=== PATIENT | female | born 1945 | race Caucasian/White ===

== ENCOUNTER 2018-04-04 18:56 | Inpatient (IN) ==
[2018-04-04] MEDS ORDERED: Acetaminophen 325 MG Tablet PO ONE (20:27)
[2018-04-04] MEDS ORDERED: Piperacil/Tazo 3.375 GM Premix 50 ML IV.SIG ONE (20:41)
--- NOTE | 2018-04-04 20:58 | ED ---
HPI General Chief Complaint: Fever Stated Complaint: fever/[place]/chills x2days Time Seen by Provider: 04/04/18 20:22 Source: patient Mode of arrival: ambulatory Limitations: no limitations History of Present Illness HPI Narrative: 72 yo F c/o dysuria and urinary frequency. fever earlier this morning reported with some improvement after Tylenol. friends report some confusion at home. pt complains of pain in the left abdomen with radiation to the left flank. no hematuia. pt reports symptoms are similar to prior urinary tract infection. Related Data Home Medications Medication Instructions Recorded Confirmed glipizide 5 mg PO DAILY 04/04/18 04/04/18 meloxicam 15 mg PO DAILY 04/04/18 04/04/18 metformin 500 mg PO BID 04/04/18 04/04/18 multivitamin [Multiple Vitamins] 1 tab PO DAILY 04/04/18 04/04/18 sitagliptin [Januvia] 100 mg PO DAILY 04/04/18 04/04/18 Allergies Allergy/AdvReac Type Severity Reaction Status Date / Time Antihistamines - Alkylamine Allergy Weakness Verified 04/04/18 19:19 Antihistamines - Ethanolamine Allergy Weakness Verified 04/04/18 19:19 Antihistamines - Allergy Weakness Verified 04/04/18 19:19 Ethylenediamine Antihistamines - Piperazine Allergy Weakness Verified 04/04/18 19:19 Antihistamines - Piperidine Allergy Weakness Verified 04/04/18 19:19 Review of Systems ROS: all other systems reviewed are negative [facility] Family History Family History Mother Diabetes Sister Breast cancer Social History Social History Substance History: No History of Abuse Second Hand Smoke Exposure: No Smoking Status: Never smoker How Often Do You Have a Drink Containing Alcohol: Never Recent Travel in [facility] within the Last 8 Weeks: Yes Recent Out of Country Travel within the Last 8 Weeks: No Exam Narrative Exam Narrative: GENERAL: 72 yo F, WNWD, mild distress, pleasant SKIN: Focused skin assessment warm/dry. HEAD: Atraumatic. Normocephalic. EYES: Pupils equal and round. No scleral icterus. No injection or drainage. ENT: No nasal bleeding or discharge. Mucous membranes pink and moist. NECK: Trachea midline. No JVD. CARDIOVASCULAR: Tachycardia. Rate 94. Normal rhythm. RESPIRATORY: No accessory muscle use. Clear to auscultation. Breath sounds equal bilaterally. GASTROINTESTINAL: Soft. Minimal generalized TTP. MUSCULOSKELETAL: No obvious deformities. No clubbing. No cyanosis. No edema. NEUROLOGICAL: Awake and alert. No obvious cranial nerve deficits. Motor grossly within normal limits. Normal speech. PSYCHIATRIC: Appropriate mood and affect; insight and judgment normal. Course Initial Documented Vital Signs Temperature 102.5 F H 04/04/18 19:20 Pulse Rate 94 H 04/04/18 19:20 Respiratory Rate 16 04/04/18 19:20 Blood Pressure 130/58 L 04/04/18 19:20 Pulse Oximetry 93 L 04/04/18 19:20 Last Documented Vital Signs Temperature 101.9 F H 04/05/18 16:00 Pulse Rate 82 04/05/18 16:00 Respiratory Rate 17 04/05/18 16:00 Blood Pressure 141/60 H 04/05/18 16:00 Pulse Oximetry 97 04/05/18 16:00 Medical Decision Making MDM Narrative Medical decision making narrative: Patient has urinary tract infection. There is a distal left ureter stone with hydronephrosis. Admission for IV antibiotics and IV fluids. Numerically the patient meets sepsis criteria. This workup has been started in the ED. d/w Dr Oglesby for [facility]. Medical Screen Exam Complete: Yes Emergency Medical Condition: Yes Differential Diagnosis Differential Diagnosis: uti, sepsis, delirium, faith Lab Data Lab results reviewed: Yes I reviewed the patient's lab results. Result diagrams: 04/05/18 06:00 04/05/18 06:00 Lab Results 04/04/18 04/04/18 04/04/18 Range/Units 20:45 20:45 20:45 CBC w Diff Slide review pending WBC 14.7 H (4.0-11.0) th/mm3 RBC 4.58 (4.00-5.30) mil/mm3 Hgb 13.4 (11.6-15.3) gm/dL Hct 40.4 (35.0-46.0) % MCV 88.2 (80.0-100.0) fL MCH 29.3 (27.0-34.0) pg MCHC 33.2 (32.0-36.0) % RDW 15.1 (11.6-17.2) % Plt Count 151 (150-450) th/mm3 MPV 8.1 (7.0-11.0) fL Neut % (Auto) 83.8 H (16.0-70.0) % Lymph % (Auto) 7.1 L (9.0-44.0) % [place] % (Auto) 8.4 H (0.0-8.0) % Eos % (Auto) 0.0 (0.0-4.0) % Baso % (Auto) 0.7 (0.0-2.0) % Neut # (Auto) 12.4 H (1.8-7.7) th/mm3 Lymph # (Auto) 1.0 (1.0-4.8) th/mm3 [place] # (Auto) 1.2 H (0.0-0.9) th/mm3 Eos # (Auto) 0.0 (0.0-0.4) th/mm3 Baso # (Auto) 0.1 (0.0-0.2) th/mm3 WBC Differential . Diff Scan Auto diff confirmed Differential Comment . Platelet Estimate Normal (Normal) Platelet Morphology Normal (Normal) RBC Morphology Normal (Normal) Sodium 136 (136-145) meq/L Potassium 3.7 (3.5-5.1) meq/L Chloride 104 (98-107) meq/L Carbon Dioxide 24.6 (21.0-32.0) meq/L Anion Gap 7 (5-15) meq/L BUN 32 H (7-18) mg/dL Creatinine 1.10 H (0.50-1.00) mg/dL Estimated GFR 49 L (>89) mL/min POC Glucose (68-110) mg/dl Random Glucose 164 H (74-106) mg/dL Lactic Acid (0.4-2.0) mmol/L Calcium 8.2 L (8.5-10.1) mg/dL Prot Corrected Calcium (8.5-10.1) mg/dL Magnesium 1.5 (1.5-2.5) mg/dL Total Bilirubin 0.9 (0.2-1.0) mg/dL AST 71 H (15-37) U/L ALT 70 H (10-53) U/L Alkaline Phosphatase 80 (45-117) U/L Total Protein 6.6 (6.4-8.2) g/dL Albumin 3.3 L (3.4-5.0) g/dL Urine Color Yellow (Yellw/Straw) Urine Clarity Slightly cloudy (Clear) Urine pH 6.5 (5.0-8.5) Ur Specific [place] 1.015 (1.002-1.035) Urine Protein 100 H (Neg-Trace) mg/dL Urine Glucose (UA) Negative (Negative) mg/dL Urine Ketones Negative (Negative) mg/dL Urine Occult Blood Moderate H (Negative) Urine Nitrate Positive H (Negative) Urine Bilirubin Negative (Negative) Urine Urobilinogen 1.0 (Less than 2) mg/dL Ur Leukocyte Esterase Moderate H (Negative) Urine RBC 4-15 H (0-3) /hpf Urine WBC 51-189 H (0-5) /hpf Ur Squamous Epith Cells 6-10 H (0-5) /hpf Urine Bacteria Many H (None) /hpf Micro UA Comment Culture indicated Ur Microscopic Review Microscopic reviewed Urine Culture Comments Culture indicated 04/04/18 04/04/18 04/05/18 Range/Units 20:50 20:50 06:00 CBC w Diff Slide review pending WBC 11.7 H (4.0-11.0) th/mm3 RBC 4.13 (4.00-5.30) mil/mm3 Hgb 12.1 (11.6-15.3) gm/dL Hct 35.8 (35.0-46.0) % MCV 86.7 (80.0-100.0) fL MCH 29.2 (27.0-34.0) pg MCHC 33.7 (32.0-36.0) % RDW 15.5 (11.6-17.2) % Plt Count 122 L (150-450) th/mm3 MPV 9.3 (7.0-11.0) fL Neut % (Auto) 81.9 H (16.0-70.0) % Lymph % (Auto) 7.6 L (9.0-44.0) % [place] % (Auto) 10.3 H (0.0-8.0) % Eos % (Auto) 0.1 (0.0-4.0) % Baso % (Auto) 0.1 (0.0-2.0) % Neut # (Auto) 9.6 H (1.8-7.7) th/mm3 Lymph # (Auto) 0.9 L (1.0-4.8) th/mm3 [place] # (Auto) 1.2 H (0.0-0.9) th/mm3 Eos # (Auto) 0.0 (0.0-0.4) th/mm3 Baso # (Auto) 0.0 (0.0-0.2) th/mm3 WBC Differential . Diff Scan Auto diff confirmed Differential Comment . Platelet Estimate Low L (Normal) Platelet Morphology Normal (Normal) RBC Morphology Normal (Normal) Sodium (136-145) meq/L Potassium (3.5-5.1) meq/L Chloride (98-107) meq/L Carbon Dioxide (21.0-32.0) meq/L Anion Gap (5-15) meq/L BUN (7-18) mg/dL Creatinine (0.50-1.00) mg/dL Estimated GFR (>89) mL/min POC Glucose 159 H (68-110) mg/dl Random Glucose (74-106) mg/dL Lactic Acid 1.3 (0.4-2.0) mmol/L Calcium (8.5-10.1) mg/dL Prot Corrected Calcium (8.5-10.1) mg/dL Magnesium (1.5-2.5) mg/dL Total Bilirubin (0.2-1.0) mg/dL AST (15-37) U/L ALT (10-53) U/L Alkaline Phosphatase (45-117) U/L Total Protein (6.4-8.2) g/dL Albumin (3.4-5.0) g/dL Urine Color (Yellw/Straw) Urine Clarity (Clear) Urine pH (5.0-8.5) Ur Specific [place] (1.002-1.035) Urine Protein (Neg-Trace) mg/dL Urine Glucose (UA) (Negative) mg/dL Urine Ketones (Negative) mg/dL Urine Occult Blood (Negative) Urine Nitrate (Negative) Urine Bilirubin (Negative) Urine Urobilinogen (Less than 2) mg/dL Ur Leukocyte Esterase (Negative) Urine RBC (0-3) /hpf Urine WBC (0-5) /hpf Ur Squamous Epith Cells (0-5) /hpf Urine Bacteria (None) /hpf Micro UA Comment Ur Microscopic Review Urine Culture Comments 04/05/18 Range/Units 06:00 CBC w Diff WBC (4.0-11.0) th/mm3 RBC (4.00-5.30) mil/mm3 Hgb (11.6-15.3) gm/dL Hct (35.0-46.0) % MCV (80.0-100.0) fL MCH (27.0-34.0) pg MCHC (32.0-36.0) % RDW (11.6-17.2) % Plt Count (150-450) th/mm3 MPV (7.0-11.0) fL Neut % (Auto) (16.0-70.0) % Lymph % (Auto) (9.0-44.0) % [place] % (Auto) (0.0-8.0) % Eos % (Auto) (0.0-4.0) % Baso % (Auto) (0.0-2.0) % Neut # (Auto) (1.8-7.7) th/mm3 Lymph # (Auto) (1.0-4.8) th/mm3 [place] # (Auto) (0.0-0.9) th/mm3 Eos # (Auto) (0.0-0.4) th/mm3 Baso # (Auto) (0.0-0.2) th/mm3 WBC Differential Diff Scan Differential Comment Platelet Estimate (Normal) Platelet Morphology (Normal) RBC Morphology (Normal) Sodium 139 (136-145) meq/L Potassium 3.4 L (3.5-5.1) meq/L Chloride 108 H (98-107) meq/L Carbon Dioxide 23.1 (21.0-32.0) meq/L Anion Gap 8 (5-15) meq/L BUN 24 H (7-18) mg/dL Creatinine 0.94 (0.50-1.00) mg/dL Estimated GFR 59 L (>89) mL/min POC Glucose (68-110) mg/dl Random Glucose 169 H (74-106) mg/dL Lactic Acid (0.4-2.0) mmol/L Calcium 7.4 L* D (8.5-10.1) mg/dL Prot Corrected Calcium 8.2 L (8.5-10.1) mg/dL Magnesium (1.5-2.5) mg/dL Total Bilirubin 1.1 H (0.2-1.0) mg/dL AST 47 H (15-37) U/L ALT 60 H (10-53) U/L Alkaline Phosphatase 64 (45-117) U/L Total Protein 5.7 L D (6.4-8.2) g/dL Albumin 2.6 L D (3.4-5.0) g/dL Urine Color (Yellw/Straw) Urine Clarity (Clear) Urine pH (5.0-8.5) Ur Specific [place] (1.002-1.035) Urine Protein (Neg-Trace) mg/dL Urine Glucose (UA) (Negative) mg/dL Urine Ketones (Negative) mg/dL Urine Occult Blood (Negative) Urine Nitrate (Negative) Urine Bilirubin (Negative) Urine Urobilinogen (Less than 2) mg/dL Ur Leukocyte Esterase (Negative) Urine RBC (0-3) /hpf Urine WBC (0-5) /hpf Ur Squamous Epith Cells (0-5) /hpf Urine Bacteria (None) /hpf Micro UA Comment Ur Microscopic Review Urine Culture Comments Imaging Data Radiologist's impression: Abdomen/Pelvis CT 04/04/18 20:40 CONCLUSION: 1. There are 2 calculi in the distal left ureter measuring up to 4 mm and 5 mm in maximal diameter with left-sided obstructive uropathy and mild left hydronephrosis. Otherwise no acute findings within the abdomen and pelvis. Abdomen X-Ray 04/05/18 00:00 CONCLUSION: 1. No renal or ureteral calculi identified. 2. Mildly nonspecific bowel gas pattern which could represent a mild ileus. Discharge Plan Discharge Disposition Patient Disposition: 30 Still Patient Physicians Team ED Provider: Kishor Whitehead Primary Care Provider: Primary Care Anuj,Didi Attending Provider: Angeline Madsen Other Providers: Logan Yusuf Status ED Status: Left Department Discharge Information Discharge Date/Time: 04/05/18 00:30
[2018-04-04 21:01] LABS: Bilirubin,Urine Negative (Negative); Clarity,Urine Slightly Cloudy (Clear); Color,Urine Yellow (Yellw/Straw); Glucose,Urine (UA) Negative (Negative); Leukocyte Esterase,Urine Moderate (Negative); Nitrite,Urine Positive (Negative); PH,Urine 6.5 (5.0-8.5); Specific Gravity,Urine 1.015 (1.002-1.035)
[2018-04-04 21:04] LABS: Baso # (Auto) 0.1 th/mm3 (0.0-0.2); Baso % (Auto) 0.7 % (0.0-2.0); Hematocrit 40.4 % (35.0-46.0); Hemoglobin 13.4 gm/dL (11.6-15.3); Lymph % (Auto) 7.1 % (9.0-44.0); Mean Corpuscular HGB Conc 33.2 % (32.0-36.0); Mean Corpuscular Hemoglobin 29.3 pg (27.0-34.0); Mean Corpuscular Volume 88.2 fL (80.0-100.0); Mean Platelet Volume 8.1 fL (7.0-11.0); Mono # (Auto) 1.2 th/mm3 (0.0-0.9); Mono % (Auto) 8.4 % (0.0-8.0); Neut # (Auto) 12.4 th/mm3 (1.8-7.7); Neut % (Auto) 83.8 % (16.0-70.0); Platelet Count 151 th/mm3 (150-450); Red Blood Count 4.58 mil/mm3 (4.00-5.30); Red Cell Distribution Width 15.1 % (11.6-17.2); White Blood Count 14.7 th/mm3 (4.0-11.0)
[2018-04-04] MEDS: Sod Chloride 0.9% Inj 1,000 ML IV.SIG SCH ×2 (21:04→22:15)
[2018-04-04 21:13] LABS: Chloride 104 meq/L (98-107); Potassium 3.7 meq/L (3.5-5.1); Sodium 136 meq/L (136-145)
[2018-04-04 21:16] LABS: Bacteria,Urine Many /hpf; Calcium 8.2 mg/dL (8.5-10.1); WBC,Urine 51-189 /hpf (0-5)
[2018-04-04 21:17] LABS: Albumin 3.3 g/dL (3.4-5.0); Anion Gap 7 meq/L (5-15); Blood Urea Nitrogen 32 mg/dL (7-18); Carbon Dioxide 24.6 meq/L (21.0-32.0); Glucose,Random 164 mg/dL (74-106); Magnesium 1.5 mg/dL (1.5-2.5)
[2018-04-04 21:20] LABS: Alanine Aminotransferase 70 U/L (10-53); Aspartate Aminotransferase 71 U/L (15-37); Glomerular Filtration Rate 49 mL/min (>89)
[2018-04-04 21:21] LABS: Total Protein 6.6 g/dL (6.4-8.2)
[2018-04-04 21:23] LABS: Alkaline Phosphatase 80 U/L (45-117)
[2018-04-04 21:26] LABS: Platelet Estimate Normal (Normal); Platelet Morphology Normal (Normal); RBC Morphology Normal (Normal)
[2018-04-04] MEDS ORDERED: Dextrose 50% in Water 50 ML Vial IV.PUSH PRN (22:37)
[2018-04-04] MEDS ORDERED: Bisacodyl 10 MG Supp RECTAL PRN (22:37)
[2018-04-04] MEDS ORDERED: Piperacil/Tazo 3.375 GM Premix 50 ML IV.SIG SCH (22:45)
--- NOTE | 2018-04-04 22:57 | CT ---
EXAM DATE: 04/04/2018 10:16 PM EDT AGE/SEX: 72 years / Female INDICATIONS: Fever. Headache. Chills. CLINICAL DATA: This is the patient's initial encounter. Patient reports that signs and symptoms have been present for 1 day and indicates a pain score of 5/10. MEDICAL/SURGICAL HISTORY: . Arthritis. Diabetes. . Cataract. Left foot. Knee. ORAL CONTRAST: No oral contrast ingested. RADIATION DOSE: 22.03 CTDI (mGy) COMPARISON: No prior exams available for comparison. TECHNIQUE: Multiple contiguous axial images were obtained through the abdomen and pelvis following b olus infusion of 90 ml Omnipaque 350 (iohexol) nonionic water-soluble contrast as a single exam dos e. No oral contrast ingested. Using automated exposure control and adjustment of the mA and/or kV ac cording to patient size, radiation dose was kept as low as reasonably achievable to obtain optimal di agnostic quality images. DICOM format image data is available electronically for review and comparis on. FINDINGS: There are 2 calculi in the distal left ureter measuring up to 4 mm and 5 mm in maximal diameter. Left ureter is dilated above the distal calculi and there is mild left hydronephrosis and obstructive uro renetta. No right-sided ureteral calculi or hydronephrosis. Lung bases are clear. No acute findings in the liver, spleen, adrenals or pancreas. No pelvic masses or free fluid. No adenopathy. No acute bony abnormalities. CONCLUSION: 1. There are 2 calculi in the distal left ureter measuring up to 4 mm and 5 mm in maximal diameter w ith left-sided obstructive uropathy and mild left hydronephrosis. Otherwise no acute findings within the abdomen and pelvis. Electronically signed by: Brandon Pérez MD 04/04/2018 10:56 PM EDT
[2018-04-04] MEDS: Sod Chloride 0.9% Inj 1,000 ML IV.CONT SCH (23:57)
[2018-04-05] MEDS: Acetaminophen 325 MG Tablet PO PRN ×2 (03:52→16:10)
[2018-04-05] MEDS: Piperacil/Tazo 3.375 GM Premix 50 ML IV.SIG SCH ×4 (03:53→21:19)
[2018-04-05 07:09] LABS: Baso % (Auto) 0.1 % (0.0-2.0); Eos % (Auto) 0.1 % (0.0-4.0); Hematocrit 35.8 % (35.0-46.0); Hemoglobin 12.1 gm/dL (11.6-15.3); Lymph # (Auto) 0.9 th/mm3 (1.0-4.8); Lymph % (Auto) 7.6 % (9.0-44.0); Mean Corpuscular HGB Conc 33.7 % (32.0-36.0); Mean Corpuscular Hemoglobin 29.2 pg (27.0-34.0); Mean Corpuscular Volume 86.7 fL (80.0-100.0); Mean Platelet Volume 9.3 fL (7.0-11.0); Mono # (Auto) 1.2 th/mm3 (0.0-0.9); Mono % (Auto) 10.3 % (0.0-8.0); Neut # (Auto) 9.6 th/mm3 (1.8-7.7); Neut % (Auto) 81.9 % (16.0-70.0); Platelet Count 122 th/mm3 (150-450); Red Blood Count 4.13 mil/mm3 (4.00-5.30); Red Cell Distribution Width 15.5 % (11.6-17.2); White Blood Count 11.7 th/mm3 (4.0-11.0)
[2018-04-05 07:19] LABS: Potassium 3.4 meq/L (3.5-5.1)
[2018-04-05 07:40] LABS: Albumin 2.6 g/dL (3.4-5.0); Calcium 7.4 mg/dL (8.5-10.1); Carbon Dioxide 23.1 meq/L (21.0-32.0); Total Protein 5.7 g/dL (6.4-8.2)
[2018-04-05 07:45] LABS: Platelet Morphology Normal (Normal); RBC Morphology Normal (Normal)
--- NOTE | 2018-04-05 08:59 | P.HPIM ---
History of Present Illness Service: Hospitalist Primary Care Physician: No Primary Care Physician Chief Complaint: Dysuria, AMS History of Present Illness: 72 year old female with DM presenting with dysuria, urinary frequency , and flank pain for the past four days. She states she began having fever and chills yesterday morning anf has also had a headache during this time. She endorses left flank discomfort and states she has had a kidney stone once in the past that did not require any urologic intervention. She denies hematuria. She felt like her symptoms were typical of UTI's she has had in the past. She denies chest pain, shortness of breath, nausea, vomiting, diarrhea, or edema. She states she was confused prior to coming in for evaluation and her relative felt that she needed to come in for evaluation. She states that she feels like she is thinking much more clearly now. PMH: non-insulin dependent DM Surgical hx: hysterectomy, L knee surgery, cataracts Family hx: DM in both parents, DM and breast cancer in sister ( in her 40s) Social hx: lives part of the year in [place], denies EtOH/tobacco/drugs - Diagnosis (1) Sepsis (2) Obstructive uropathy (3) Ureteral calculi (4) UTI (urinary tract infection) (5) Metabolic encephalopathy Inpatient Certification: I certify that the inpatient services were ordered in accordance with Medicare regulations governing the order. This includes certification that hospital inpatient services are reasonable and necessary and in the case of services not specified as inpatient-only under 42 CFR 419.22(n), that they are appropriately provided as inpatient services in accordance to with the 2-midnight benchmark under 43 CFR 412.3(e) Estimated Total Length of Stay (Days): 2 Plans for Post Hospital Care: Home Review of Systems All other systems reviewed negative except as stated in HPI PMFSH - History History Provided By: Patient - Medical History Medical History: Medical History (Last Reviewed 04/05/18 @ 13:40 by Angeline Madsen MD) Arthritis Diabetes H/O: hysterectomy - Surgical History Surgical History: Surgical History (Last Reviewed 04/05/18 @ 13:40 by Angeline Madsen MD) Hx of cataract surgery Hx of foot surgery Hx of knee surgery - Family History Family History: Family History (Last Updated 04/05/18 @ 13:41 by Angeline Madsen MD) Mother Diabetes Sister Breast cancer - Social History I have reviewed the patient's Social History: Yes - Tobacco History Second Hand Smoke Exposure: No Tobacco Use In Past 30 Days: No Smoking Status: Never smoker - Alcohol History How Often Do You Have a Drink Containing Alcohol: Never - Substance Use History Substance History: No History of Abuse - Travel History Recent Travel in the [place] Within the Last 8 Weeks: Yes Recent Travel Out of the Country Within the Last 8 Weeks: No - Immunization History Tetanus Immunization: Unsure Hx Influenza Vaccine This Season: Yes Medications and Allergies Active Medications: Active Medications Acetaminophen (Tylenol) 650 mg PO Q4H PRN PRN Reason: fever, or [place] Last Admin: 04/05/18 03:52 Dose: 650 mg Al Hydroxide/Mg Hydroxide (Milk Of Magnesia Liq) 30 ml PO Q12H PRN PRN Reason: Mild Constipation Bisacodyl (Dulcolax Supp) 10 mg RECTAL DAILY PRN PRN Reason: SEVERE CONSITIPATION Dextrose (D50w Vial) 50 ml IV.PUSH UNSCH PRN PRN Reason: PER HYPOGLYCEMIA PROTOCOL Glucagon (Glucagon Inj) 1 mg OTHER PRN PRN PRN Reason: for Hypoglycemia Protocol Sodium Chloride (Ns Inj) 1,000 mls @ 0 mls/hr IV.SIG BOLUS ANA Stop: 04/05/18 20:46 Last Infusion: 04/04/18 23:00 Dose: Infused Sodium Chloride (Ns Inj) 1,000 mls @ 100 mls/hr IV.CONT .Q10H ANA Last Admin: 04/04/18 23:57 Dose: 100 mls/hr Piperacillin/Tazobactam/Dextrose (Zosyn 3.375 Gm Premix) 50 mls @ 100 mls/hr IV.SIG Q6H ANA Last Infusion: 04/05/18 04:25 Dose: Infused Insulin Aspart (Novolog Insulin Correctional Sugar Inj) 0 unit SQ ACHS ANA; Protocol Lactulose (Lactulose Liq) 30 ml PO DAILY PRN PRN Reason: SEVERE CONSITIPATION Sennosides (Senokot) 17.2 mg PO Q12H PRN PRN Reason: Moderate Constipation Allergies Allergy/AdvReac Type Severity Reaction Status Date / Time Antihistamines - Alkylamine Allergy Weakness Verified 04/04/18 19:19 Antihistamines - Ethanolamine Allergy Weakness Verified 04/04/18 19:19 Antihistamines - Allergy Weakness Verified 04/04/18 19:19 Ethylenediamine Antihistamines - Piperazine Allergy Weakness Verified 04/04/18 19:19 Antihistamines - Piperidine Allergy Weakness Verified 04/04/18 19:19 Home Medications Medication Instructions Recorded Confirmed Type glipizide 5 mg PO DAILY 04/04/18 04/04/18 History meloxicam 15 mg PO DAILY 04/04/18 04/04/18 History metformin 500 mg PO BID 04/04/18 04/04/18 History multivitamin [Multiple Vitamins] 1 tab PO DAILY 04/04/18 04/04/18 History sitagliptin [Januvia] 100 mg PO DAILY 04/04/18 04/04/18 History Exam Vital signs: Vital Signs 04/04/18 19:20 04/04/18 19:27 04/04/18 20:27 Temperature 102.5 F H Pulse Rate 94 H 80 Respiratory Rate 16 17 Blood Pressure 130/58 L 111/80 Pulse Oximetry 93 L 97 97 04/04/18 22:14 04/04/18 23:15 04/05/18 00:56 Temperature 99.5 F 100.4 F H Pulse Rate 75 79 76 Respiratory Rate 16 16 Blood Pressure 112/52 L 106/54 L 147/64 H Pulse Oximetry 97 96 98 04/05/18 04:00 04/05/18 04:40 Temperature 99.8 F H Pulse Rate 94 H 72 Respiratory Rate 16 Blood Pressure 148/68 H Pulse Oximetry 97 Intake & Output 04/04/18 04/05/18 04/05/18 18:59 06:59 18:59 Intake Total 1300 / 1300 Output Total 400 / 400 Balance 900 / 900 Weight 106.4 kg Intake: IV 1100 / 1100 Zosyn 3.375 GM Premix 50 ML @ 100 / 100 100 mls/hr IV.SIG Q6H ANA Rx#: [id number] NS Inj 1,000 ML @ Wide Open IV. 1000 / 1000 SIG BOLUS ANA Rx#:[id number] Oral 200 / 200 Output: Urine 400 / 400 Other: Weight On Admission 106.4 kg Narrative: GENERAL: WN, WD female resting in bed in NAD. SKIN: Warm and dry. HEENT: AT/NC. Pupils equal and round. MMM. NECK: Supple no tender LAD or JVD. HEART: RRR no m/r/g. LUNGS: CTAB without wheezes or crackles. ABDOMEN: +BS, soft, NT, ND. BACK: L CVA TTP. EXTREMITIES: No LE edema. 2+ pedal pulses. NEURO: Awake and alert. PSYCH: Appropriate mood and affect. Results - Labs CBC & Chem 7: 04/05/18 06:00 04/05/18 06:00 Labs: Short CBC 04/04/18 04/05/18 Range/Units 20:45 06:00 WBC 14.7 H 11.7 H (4.0-11.0) th/mm3 Hgb 13.4 12.1 (11.6-15.3) gm/dL Hct 40.4 35.8 (35.0-46.0) % Plt Count 151 122 L (150-450) th/mm3 BMP 04/04/18 04/05/18 20:45 06:00 Sodium 136 139 Potassium 3.7 3.4 L Chloride 104 108 H Carbon Dioxide 24.6 23.1 BUN 32 H 24 H Creatinine 1.10 H 0.94 Calcium 8.2 L 7.4 L* D Liver Function 04/04/18 04/05/18 Range/Units 20:45 06:00 Total Bilirubin 0.9 1.1 H (0.2-1.0) mg/dL AST 71 H 47 H (15-37) U/L ALT 70 H 60 H (10-53) U/L Alkaline Phosphatase 80 64 (45-117) U/L Albumin 3.3 L 2.6 L D (3.4-5.0) g/dL Urine 04/04/18 Range/Units 20:45 Urine Color Yellow (Yellw/Straw) Urine Clarity Slightly cloudy (Clear) Urine pH 6.5 (5.0-8.5) Ur Specific [place] 1.015 (1.002-1.035) Urine Protein 100 H (Neg-Trace) mg/dL Urine Glucose (UA) Negative (Negative) mg/dL - Imaging Impressions Abdomen/Pelvis CT 04/04/18 20:40 CONCLUSION: 1. There are 2 calculi in the distal left ureter measuring up to 4 mm and 5 mm in maximal diameter with left-sided obstructive uropathy and mild left hydronephrosis. Otherwise no acute findings within the abdomen and pelvis. Caprini VTE Risk Assessment Caprini VTE Risk Assessment: Moderate/High Risk (score >= 2) Caprini Risk Assessment Model: Point Value = 1 Point Value = 2 Point Value = 3 Point Value = 5 Age 41-60 Minor surgery BMI > 25 kg/m2 Swollen legs Varicose veins or History of unexplained or recurrent spontaneous Oral contraceptives or hormone replacement Sepsis (< 1 month) Serious lung disease, including pneumonia (< 1 month) Abnormal pulmonary function Acute myocardial infarction Congestive heart failure (< 1 month) History of inflammatory bowel disease Medical patient at bed rest Age 61-74 Arthroscopic surgery Major open surgery (> 45 min) Laparoscopic surgery (> 45 min) Malignancy Confined to bed (> 72 hours) Immobilizing plaster cast Central venous access Age >= 75 History of VTE Family history of VTE Factor V Leiden Prothrombin 10322A Lupus anticoagulant Anticardiolipin antibodies Elevated serum homocysteine Heparin-induced thrombocytopenia Other congenital or acquired thrombophilia Stroke (< 1 month) Elective arthroplasty Hip, pelvis, or leg fracture Acute spinal cord injury (< 1 month) Prophylaxis Regimen: Total Risk Factor Score Risk Level Prophylaxis Regimen 0-1 Low Early ambulation 2 Moderate Order ONE of the following: *Sequential Compression Device (SCD) *Heparin 5000 units SQ BID 3-4 Higher Order ONE of the following medications: *Heparin 5000 units SQ TID *Enoxaparin/Lovenox 40 mg SQ daily (WT < 150 kg, CrCl > 30 mL/min) *Enoxaparin/Lovenox 30 mg SQ daily (WT < 150 kg, CrCl > 10-29 mL/min) *Enoxaparin/Lovenox 30 mg SQ BID (WT < 150 kg, CrCl > 30 mL/min) AND/OR *Sequential Compression Device (SCD) 5 or more Highest Order ONE of the following medications: *Heparin 5000 units SQ TID (Preferred with Epidurals) *Enoxaparin/Lovenox 40 mg SQ daily (WT < 150 kg, CrCl > 30 mL/min) *Enoxaparin/Lovenox 30 mg SQ daily (WT < 150 kg, CrCl > 10-29 mL/min) *Enoxaparin/Lovenox 30 mg SQ BID (WT < 150 kg, CrCl > 30 mL/min) AND *Sequential Compression Device (SCD) Assessment and Plan - Assessment (1) Sepsis Code(s): A41.9 - Sepsis, unspecified organism Status: Acute (2) Obstructive uropathy Code(s): N13.9 - Obstructive and reflux uropathy, unspecified Status: Acute (3) Ureteral calculi Code(s): N20.1 - Calculus of ureter Status: Acute (4) UTI (urinary tract infection) Code(s): N39.0 - Urinary tract infection, site not specified Status: Acute (5) Metabolic encephalopathy Code(s): G93.41 - Metabolic encephalopathy Status: Acute - Plan 72 year old female with DM admitted for UTI and obstructive uropathy secondary to ureteral calculi. 1. Sepsis - WBC 14.7, T 102.5, and source of infection UTI - Lactic acid WNL - Received 2L NS bolus in the ED - Continue NS at 100 ml/hr - Treat underlying infection as below 2. UTI - U/A with + protein, blood, nitrate, and leukocyte esterase - Urine culture growing GNR - Continue Zosyn 3. Obstructive uropathy with left hydronephrosis - CT A/P showing 2 calculi in the distal left ureter measuring up to 4 and 5 mm in maximal diameter with left-sided obstructive uropathy and mild left hydronephrosis - Consult urology - Antibiotics and fluids as above - Pain control - Antiemetics PRN 4. DM - Hold home PO meds - SSI per protocol DVT prophylaxis: heparin Code Status: DNR Discussed Condition With: Patient Discharge Planning: Anticipate D/C in 2-3 days pending urologic evaluation and clinical improvement H&P: Quality - VTE Deep Vein Thrombosis/Pulmonary Embolism Present on Admission: No
[2018-04-05] MEDS: Sod Chloride 0.9% Inj 1,000 ML IV.CONT SCH ×3 (10:26→21:22)
[2018-04-05] MEDS: Ketorolac Inj 30 MG/ML (IVP) Vial IV.PUSH SCH ×3 (10:26→21:18)
[2018-04-05] MEDS: Insulin NovoLOG Aspart Correctional Sugar Inj SQ SCH ×4 (10:26→21:16)
--- NOTE | 2018-04-05 13:42 | XR ---
EXAM DATE: 04/05/2018 1:13 PM EDT AGE/SEX: 72 years / Female INDICATIONS: Abdominal pain, renal stones CLINICAL DATA: This is the patient's initial encounter. Patient reports that signs and symptoms have been present for 2 days and indicates a pain score of 0/10. MEDICAL/SURGICAL HISTORY: . Arthritis. Diabetes. . Cataract. COMPARISON: No prior exams available for comparison. FINDINGS: Gas and stool is noted segmentally in the colon. There are several loops of nondilated air-containin g small bowel. There are no renal or ureteral calculi. No abnormal masses, calcifications, or organom egaly is seen. The osseous structures are unremarkable. CONCLUSION: 1. No renal or ureteral calculi identified. 2. Mildly nonspecific bowel gas pattern which could represent a mild ileus. Electronically signed by: Grover Pappas MD 04/05/2018 1:41 PM EDT
--- NOTE | 2018-04-05 16:57 | ECG ---
Date Performed: 04/04/2018 Time Performed: 20:54:49 PTAGE: 72 years EKG: Normal Sinus rhythm NONSPECIFIC ST & T-WAVE ABNORMALITY ABNORMAL ECG NO PREVIOUS TRACING DOCTOR: Aurelio Helton Interpretating Date/Time 04/05/2018 16:56:21
--- NOTE | 2018-04-05 19:03 | MB ---
cc: Logan Yusuf MD DATE: 04/05/2018 REASON FOR CONSULTATION: 1. Distal left ureteral calculi with mild hydronephrosis. 2. Left flank pain. 3. Urinary tract infection. HISTORY OF PRESENT ILLNESS: The patient is a 72-year-old female with a history of kidney stones and diabetes, who presented to the ER with complaints of dysuria, urinary frequency, chills and flank pain for the past 4 days. She states approximately 2 days ago, she started having chills, headaches and a fever of 100 at home with some mild left lower quadrant pain radiating to her left flank. She states that this pain reminded of her previous kidney infections in the past as well as a stone she had about approximately 5 years ago, which she passed on her own. She denied hematuria, nausea or vomiting. She came to ER where a CT with stone protocol was performed which showed 2 separate distal left ureteral calculi of approximately 4 and 5 mm sizes respectively with mild hydronephrosis and found to have a urinary tract infection. She was admitted for IV antibiotics. Urology was consulted. She states that while she was in the ER last night, she did pass 1 of her stones as she saw it in the toilet; however, she does not think she passed her other stone. She had a KUB earlier this morning that did not show any stones. She has not seen a urologist in the past. She states she is feeling better today and thinking much more clearly as her family states she was confused yesterday. She is on her way back from [place] back to her home in [facility]. PAST MEDICAL HISTORY: Kidney stones, diabetes. PAST SURGICAL HISTORY: Hysterectomy, left knee surgery, cataracts. FAMILY HISTORY: Denies urolithiasis or genitourinary malignancies. SOCIAL HISTORY: . Denies alcohol, tobacco or illicit drug use. HOME MEDICATIONS: Include NovoLog insulin. ALLERGIES: ANTIHISTAMINES AND . REVIEW OF SYSTEMS: See HPI. All other systems reviewed and otherwise negative. PHYSICAL EXAMINATION: VITAL SIGNS: T-max of 101.9, pulse 70, respiratory rate 17, BP 123/58, saturating 96% on room air. GENERAL: She is alert, oriented x 3, in no apparent distress, pleasant and cooperative lady who appears her stated age. HEAD: Normocephalic, atraumatic. EYES: No scleral icterus. Extraocular muscles intact. EARS: External hearing is normal. NECK: Supple. Trachea is midline. No JVD. LUNGS: Clear to auscultation bilaterally. No wheezes, rales or rhonchi. HEART: Regular rate and rhythm. No murmurs, gallops or rubs. ABDOMEN: Soft, nontender, nondistended. Positive bowel sounds. GENITOURINARY: No CVA tenderness bilaterally. PELVIC: Not indicated at this time. NEUROLOGIC: Cranial nerves 2-12 intact. Strength 5/5 in all 4 extremities. EXTREMITIES: Nontender. No clubbing, cyanosis or edema. PSYCHIATRIC: Normal affect. Answers questions appropriately. SKIN: Warm and dry. No ulcers or rashes noted. LABORATORY DATA: White count 11.7, down from 14.7; hemoglobin 12.1; hematocrit 35.8; platelet count 122. Sodium 135, potassium 3.1, chloride 108, bicarbonate 23.1, BUN 24, creatinine 0.94, calcium 7.4. Lactic acid 1.3. Her urine showed positive nitrites, moderate blood, moderate leukocyte esterase. Culture currently pending, which is growing gram-negative rods. IMAGING STUDIES: CT of the abdomen with stone protocol was reviewed. I agree with the radiologist's report. The patient has 2 separate distal ureteral calculi of approximately 4-5 mm in size along with very mild hydronephrosis. No other stones are seen in the right kidney. ASSESSMENT: The patient is a 72-year-old female with history of kidney stones who presents with left flank pain, dysuria, frequency and chills and diagnosed with a urinary tract infection as well as a distal left ureteral calculi with moderate hydronephrosis. PLAN: Recommend continuing Flomax, Toradol and straining her urine. Continue Zosyn IV pending culture. We will check a renal ultrasound in the morning for residual hydronephrosis. We will also make her n.p.o. after midnight just in case she clinically deteriorates overnight or spikes more fevers and then she likely will need a cystoscopy and a stent. Otherwise, hopefully with the help of medications, she will pass these stones on her own. I did discuss with her about following up with a urologist back in her hometown when she is discharged from the hospital as she would likely need a metabolic workup for her stone disease. Thank you for this consult. Please call with any questions. MD AUGUSTA Nicole/jonathan/ , 05:19 PM , 05:32 PM
[2018-04-05] MEDS: Heparin - SQ 10,000 UNITS/ML Vial SQ SCH (21:17)
[2018-04-06] MEDS: Ketorolac Inj 30 MG/ML (IVP) Vial IV.PUSH SCH (04:27)
[2018-04-06] MEDS: Piperacil/Tazo 3.375 GM Premix 50 ML IV.SIG SCH ×2 (04:28→09:31)
[2018-04-06] MEDS: Acetaminophen 325 MG Tablet PO PRN ×2 (04:33→14:49)
[2018-04-06] MEDS: Sod Chloride 0.9% Inj 1,000 ML IV.CONT SCH ×2 (05:47→14:48)
[2018-04-06] MEDS: Insulin NovoLOG Aspart Correctional Sugar Inj SQ SCH ×2 (09:19→12:23)
[2018-04-06] MEDS: Heparin - SQ 10,000 UNITS/ML Vial SQ SCH (09:31)
--- NOTE | 2018-04-06 09:36 | US ---
EXAM DATE: 04/06/2018 9:30 AM EDT AGE/SEX: 72 years / Female INDICATIONS: Hydronephrosis. Left UVJ stone. CLINICAL DATA: This is the patient's initial encounter. Patient reports that signs and symptoms have been present for 3 days and indicates a pain score of 3/10. MEDICAL/SURGICAL HISTORY: Arthritis. Diabetes. Hydronephrosis. Left UVJ stone. Hysterectomy. Cataract surgery. Foot surgery. Knee surgery. COMPARISON: [facility], CT ABDOMEN & PELVIS W CONTRAST, 04/04/2018. . MEASUREMENTS: Right Kidney:__11.0 x 4.6 x 5.1 cm Left Kidney:__12.5 x 5.2 x 4.7 cm FINDINGS: Right Kidney: There is mild prominence of the right renal collecting system. No concerning solid mass or stone is seen. Left Kidney: There is mild prominence of left renal collecting system. No concerning solid mass or st one is seen. Bladder: Within normal limits given the degree of distension. Other: None. CONCLUSION: 1. Active ureteral jets are noted bilaterally. No significant stones are seen. Mild prominence of th e renal collecting system similar to CT scan on the bilaterally Electronically signed by: Chele De Oliveira MD 04/06/2018 9:34 AM EDT
[2018-04-06] MEDS ORDERED: Simethicone 80 MG Chew Tablet PO ONE (12:00)
[2018-04-06 12:47] VITALS: BP 182/79; PULSE 58; RESP 20; TEMP 97.8; O2SAT 98
--- NOTE | 2018-04-06 15:22 | P.DS ---
Date of admission: 04/04/18 22:36 Primary care physician: No Primary Care Physician Attending physician on discharge: Angeline Madsen Anticipated date of discharge: 04/06/18 Brief History from admission: 72 year old female with DM presenting with dysuria, urinary frequency , and flank pain for the past four days. She states she began having fever and chills yesterday morning anf has also had a headache during this time. She endorses left flank discomfort and states she has had a kidney stone once in the past that did not require any urologic intervention. She denies hematuria. She felt like her symptoms were typical of UTI's she has had in the past. She denies chest pain, shortness of breath, nausea, vomiting, diarrhea, or edema. She states she was confused prior to coming in for evaluation and her relative felt that she needed to come in for evaluation. She states that she feels like she is thinking much more clearly now. PMH: non-insulin dependent DM Surgical hx: hysterectomy, L knee surgery, cataracts Family hx: DM in both parents, DM and breast cancer in sister ( in her 40s) Social hx: lives part of the year in [place], denies EtOH/tobacco/drugs Patient update on day of discharge: Pt complaining of some gas earlier that was resolved with simethicone. She denies any significant abdominal or flank pain. She had some mild dysuria this AM. No hematuria. She complains of some frontal sinus pressure and congestion. Feels otherwise ready to go home. DS: Diagnosis - Discharge Diagnosis (1) Sepsis Status: Resolved (2) Obstructive uropathy Status: Acute (3) Ureteral calculi Status: Acute (4) UTI (urinary tract infection) Status: Acute DS: Medications - Discharge Medications Prescriptions: ciprofloxacin HCl [Cipro] 500 mg PO BID #14 tab hydrocodone-acetaminophen [Riley] 1 tab PO Q6H PRN #12 tab PRN Reason: Acute Pain Exception tamsulosin 0.4 mg PO DAILY #7 cap DS: Summary Hospital Course: 72 year old female with history of DM admitted on 04/05 with dysuria, urinary frequency, and flank pain x 4 days found to have two left ureteral calculi measuring 4 and 5 mm with left-sided obstructive uropathy and mild left hydronephrosis. Patient met septic criteria on admission based on leukocytosis , fever, and source of infection. She was started on Zosyn and fluids. Urology was consulted. Repeat ultrasound did not show any worsening of the hydronephrosis. Patient did pass one stone in the hospital. Urine culture grew E. coli. She was discharged in stable condition on 04/06 on a course of Cipro and Flomax. - Time Spent with Patient Total time spent providing and/or coordinating discharge services: Less than 30 minutes - Quality: VTE Deep Vein Thrombosis/Pulmonary Embolism Present on Admission: No Exam Vital signs: Vital Signs 04/05/18 16:00 04/05/18 20:00 04/06/18 00:00 Temperature 101.9 F H 97.5 F L 97.1 F L Pulse Rate 82 65 56 L Respiratory Rate 17 18 18 Blood Pressure 141/60 H 114/56 L 122/66 Pulse Oximetry 97 96 99 04/06/18 04:00 04/06/18 08:00 04/06/18 12:00 Temperature 97.6 F 98.6 F 97.8 F Pulse Rate 69 61 58 L Respiratory Rate 18 18 20 Blood Pressure 161/72 H 160/77 H 182/79 H Pulse Oximetry 97 97 98 Intake & Output 04/05/18 04/06/18 04/06/18 18:59 06:59 18:59 Intake Total 2009 1400 / 1400 360 / 360 Output Total 600 / 600 450 / 450 801 / 801 Balance 1410 / 1410 950 / 950 -441 / -441 Weight 106.4 kg Intake: IV 1050 / 1050 1000 / 1000 NS Inj 1,000 ML @ 100 mls/hr IV 1000 / 1000 850 / 850 .CONT .Q10H ANA Rx#:[id number] Zosyn 3.375 GM Premix 50 ML @ 50 / 50 150 / 150 100 mls/hr IV.SIG Q6H ANA Rx#: [id number] Oral 960 / 960 400 / 400 360 / 360 Output: Urine 600 / 600 450 / 450 800 / 800 Stool Other: # Voids 2 Date of Last Bowel Movement 04/06/18 # Bowel Movements 1 Narrative: GENERAL: WN, WD female resting in bed in NAD. SKIN: Warm and dry. HEENT: AT/NC. Pupils equal and round. MMM. NECK: Supple no tender LAD or JVD. HEART: RRR no m/r/g. LUNGS: CTAB without wheezes or crackles. ABDOMEN: +BS, soft, NT, ND. BACK: No significant CVA TTP. EXTREMITIES: No LE edema. NEURO: Awake and alert. Results Procedures completed during hospitalization: None Labs on day of discharge: Labs from last 24 hours 04/06/18 04/05/18 10:20 20:14 POC Glucose 134 H 253 H Preliminary micro results at discharge 04/04/18 20:50 Aerobic Blood Culture - Preliminary Blood - Peripheral No growth in 2 days Anaerobic Blood Culture - Preliminary No growth in 2 days 04/04/18 20:45 Aerobic Blood Culture - Preliminary Blood - Peripheral No growth in 2 days Anaerobic Blood Culture - Preliminary No growth in 2 days - Impressions Abdomen/Pelvis CT 04/04/18 20:40 CONCLUSION: 1. There are 2 calculi in the distal left ureter measuring up to 4 mm and 5 mm in maximal diameter with left-sided obstructive uropathy and mild left hydronephrosis. Otherwise no acute findings within the abdomen and pelvis. Abdomen X-Ray 04/05/18 00:00 CONCLUSION: 1. No renal or ureteral calculi identified. 2. Mildly nonspecific bowel gas pattern which could represent a mild ileus. Abdomen/Bladder Ultrasound 04/06/18 06:00 CONCLUSION: 1. Active ureteral jets are noted bilaterally. No significant stones are seen. Mild prominence of the renal collecting system similar to CT scan on the bilaterally Discharge Plan - Discharge Disposition Patient Disposition: 01 Discharge Home - Discharge Condition Condition: Stable - Discharge Order Discharge Orders: Discharge Order (Routine); Ordered 04/06/18 Ordered By: Angeline Madsen Urology Clear for Discharge (Routine); Ordered 04/06/18 Ordered By: Logan Yusuf - Discharge Details Anticipated Discharge Date: 04/06/18 - Physicians Team Primary Care Provider: Primary Care Physici,No Attending Provider: Angeline Madsen Other Providers: Logan Yusuf MD
== END 2018-04-06 15:58 | disposition home or self-care (01) ==
LOC: PHED 18:56 → PHEDA 22:36 → PH3 04-05 00:15
PROVIDERS: ADMIT Family Medicine; ATTEND Family Medicine